=== PATIENT | female | born 1990 | race American Indian/Alaskan Native ===

== ENCOUNTER 2017-04-02 11:35 | Emergency (ER) | payer MEDICAID, OTHER ==
--- NOTE | 2017-04-02 13:43 | Emergency Department Report ---
Entered by LOLI DEE, acting as scribe for BLANCA BYRNE NP. Chief Complaint: Nosebleed Stated Complaint: NOSE BLEED/LIGHT HEADED/HEADACHE - HPI History of Present Illness: 26 y/o female, nontoxic, well developed, NAD, c/o nasal bleeding beginning this morning. Symptoms have resolved upon being seen in the ED. Associated sneezing but denies fever, chills, SOB, CP, CHRISTOPHER, NVD, blurry vision, dizziness. Patient has a Hx of nose bleeds and seasonal allergies. She reports taking Tylenol last night around 23:00. - Exam Vital Signs: Vital Signs 04/02/17 11:46 Temperature 98 F Pulse Rate 79 Respiratory 18 Rate Blood Pressure 117/81 O2 Sat by Pulse 100 Oximetry Physical Exam: GENERAL: The patient is a well-developed, well-nourished male in no apparent distress. Patient is alert and oriented x3. HEENT: Head is normocephalic and atraumatic. PERRL, Extraocular muscles are intact. Pupils are equal, round, and reactive to light and accommodation. Nares appeared normal, no abscess, no nasal tenderness. Mouth is well hydrated and without lesions. Mucous membranes are moist. Posterior pharynx clear of any exudate or lesions. MSE screening note: Focused history and physical exam performed. Due to findings the following was ordered: CBC ED Disposition for MSE Condition: Stable Referrals: PRIMARY CARE,MD [Primary Care Provider] - 3-5 Days This documentation as recorded by the scribe,LOLI DEE,accurately reflects the service I personally performed and the decisions made by ,BLANCA BYRNE, SHAE.
--- NOTE | 2017-04-02 14:47 | Emergency Department Report ---
ED ENT HPI - General Chief complaint: Nosebleed Stated complaint: NOSE BLEED/LIGHT HEADED/HEADACHE Time Seen by Provider: 04/02/17 14:31 Source: patient Mode of arrival: Ambulatory Limitations: No Limitations - History of Present Illness Initial comments: PT c/o nose bleed that lasted for 5 minutes today. PT denies recent uri but states that she has allergies. PT states that her last nose bleed was on . PT states the bleeding resolved on it's own. PT states she has hx of frequent nose bleeds and usually has a a few nose bleeds when her allergies are bothering her. PT states the bleeding has gotten less frequent as she has gotten older. also, pt has a hx of increased ear wax, pt states no relief with hydrogen peroxide flushes at home. MD complaint: epistaxis -: Sudden Severity: mild Consistency: now resolved Worsens with: other (sneezing ) Associated Symptoms: denies: fever, cough, pain with swallowing, sore throat, tinnitus, hearing loss, discharge from ear, rhinorrhea - Related Data Previous Rx's Medication Instructions Recorded Last Taken Type Fexofenadine HCl 180 mg PO DAILY #14 tablet 04/02/17 Unknown Rx Allergies Allergy/AdvReac Type Severity Reaction Status Date / Time Sulfa (Sulfonamide Allergy Hives Verified 01/09/15 11:36 Antibiotics) ED Dental HPI - General Chief complaint: Nosebleed Stated complaint: NOSE BLEED/LIGHT HEADED/HEADACHE Time Seen by Provider: 04/02/17 14:31 Source: patient Mode of arrival: Ambulatory Limitations: No Limitations - Related Data Previous Rx's Medication Instructions Recorded Last Taken Type Fexofenadine HCl 180 mg PO DAILY #14 tablet 04/02/17 Unknown Rx Allergies Allergy/AdvReac Type Severity Reaction Status Date / Time Sulfa (Sulfonamide Allergy Hives Verified 01/09/15 11:36 Antibiotics) ED Review of Systems ROS: Stated complaint: NOSE BLEED/LIGHT HEADED/HEADACHE Other details as noted in HPI Comment: All other systems reviewed and negative Constitutional: denies: chills, fever ENT: as per HPI Respiratory: no symptoms reported Genitourinary: denies: abnormal menses Neurological: headache (pt states she took tylenol for it. ) ED Past Medical Hx - Past Medical History Previous Medical History?: Yes Additional medical history: nosebleed with cold s/s - Surgical History Past Surgical History?: No Additional Surgical History: Left ear keloid removed - Social History Smoking Status: Never Smoker Substance Use Type: Alcohol - Medications Home Medications: Home Medications Medication Instructions Recorded Confirmed Last Taken Type Fexofenadine HCl 180 mg PO DAILY #14 tablet 04/02/17 Unknown Rx ED Physical Exam - General Limitations: No Limitations General appearance: alert, in no apparent distress - Head Head exam: Present: atraumatic, normocephalic, normal inspection - Eye Eye exam: Present: normal appearance, PERRL, EOMI. Absent: conjunctival injection - ENT ENT exam: Present: normal orophraynx, mucous membranes moist, normal external ear exam, other (nose wnl, no active bleeding, nares patent ) - Expanded ENT Exam Expanded TM/Canal exam: Cerumen Impaction: Right TM, Left TM Mouth exam: Present: normal external inspection. Absent: drooling, trismus Throat exam: Positive: normal inspection. Negative: tonsillar erythema, tonsillomegaly, tonsillar exudate - Neck Neck exam: Present: normal inspection, full ROM. Absent: tenderness, lymphadenopathy - Respiratory Respiratory exam: Present: normal lung sounds bilaterally. Absent: respiratory distress - Cardiovascular Cardiovascular Exam: Present: regular rate, normal rhythm, normal heart sounds - Extremities Exam Extremities exam: Present: normal inspection, full ROM - Back Exam Back exam: Present: normal inspection, full ROM. Absent: tenderness, CVA tenderness (R), CVA tenderness (L) - Neurological Exam Neurological exam: Present: alert, oriented X3, normal gait - Psychiatric Psychiatric exam: Present: normal affect, normal mood - Skin Skin exam: Present: warm, dry, intact ED Course Vital Signs 04/02/17 04/02/17 11:46 16:02 Temperature 98 F Pulse Rate 79 66 Respiratory 18 18 Rate Blood Pressure 117/81 Blood Pressure 119/83 [Right] O2 Sat by Pulse 100 100 Oximetry - Reevaluation(s) Reevaluation #1: 04/02/17 15:30 PT aware of lab results. PT verbalizes understanding of dx and plan of care. No questions at this time. - Ear Wax Removal Both Ears Ear Canal(s) Curettaged: plastic scoops Results: Re-examined: cerumen removed completel TM Visible: TM(s) intact, normal appe Ear Canal: atraumatic Patient Tolerated Procedure: well, no complications Complications: no problems - Pulse Oximetry Interpretation Digit-Finger Initial Pulse Oximetry Readin Actions Taken: none ED Medical Decision Making - Lab Data Result diagrams: 04/02/17 14:56 Laboratory Results - last 24 hr 04/02/17 14:56 WBC 5.2 RBC 4.27 Hgb 12.6 Hct 39.1 MCV 92 MCH 30 MCHC 32 RDW 14.9 Plt Count 238 Lymph % (Auto) 46.2 H Monroe % (Auto) 9.3 H Eos % (Auto) 0.6 Baso % (Auto) 0.6 Lymph # 2.4 Monroe # 0.5 Eos # 0.0 Baso # 0.0 Seg Neutrophils % 43.3 Seg Neutrophils # 2.3 - Differential Diagnosis thrombocytopenia, cerumen impaction, sinusitis Critical Care Time: No Critical care attestation.: If time is entered above; I have spent that time in minutes in the direct care of this critically ill patient, excluding procedure time. ED Disposition Clinical Impression: Bilateral impacted cerumen, Epistaxis not due to trauma Allergic rhinitis Qualifiers: Allergic rhinitis trigger: unspecified Allergic rhinitis seasonality: unspecified seasonality Qualified Code(s): J30.9 - Allergic rhinitis, unspecified Disposition: DISCHARGED TO HOME OR SELFCARE Is pt being admited?: No Does the pt Need Aspirin: No Condition: Stable Instructions: Epistaxis (ED), Cerumen Impaction (ED), Allergies (ED) Prescriptions: Fexofenadine HCl 180 mg PO DAILY #14 tablet Referrals: [facility] [Outside] - 3-5 Days PRIMARY MD ANUM [Primary Care Provider] - 3-5 Days PATT MUSA MD [Staff Physician] - 3-5 Days Forms: Work/School Release Form(ED) Time of Disposition: 15:38
[2017-04-02 15:13] LABS: Basophils % (Auto) 0.6 % (0.0-1.8); Eosinophils % (Auto) 0.6 % (0.0-4.3); Hematocrit 39.1 % (30.3-42.9); Hemoglobin 12.6 gm/dl (10.1-14.3); Mean Corpuscular HGB Conc 32 % (30-34); Mean Corpuscular Hemoglobin 30 pg (28-32); Mean Corpuscular Volume 92 fl (79-97); Platelet Count 238 K/mm3 (140-440); Red Blood Count 4.27 M/mm3 (3.65-5.03); Red Cell Distribution Width 14.9 % (13.2-15.2); White Blood Count 5.2 K/mm3 (4.5-11.0)
[2017-04-02 16:03] VITALS: BP 119/83
== END 2017-04-02 16:04 | disposition home or self-care (01) ==
LOC: ED 11:35
DX: R04.0 Epistaxis (principal); H61.23 Impacted cerumen, bilateral; J30.9 Allergic rhinitis, unspecified; Z88.2 Allergy status to sulfonamides
CPT/HCPCS: 36415; 85025

== ENCOUNTER 2018-05-01 19:35 | Emergency (ER) | payer MEDICAID ==
[2018-05-01] MEDS ORDERED: TYLENOL ONE (20:17)
[2018-05-01] MEDS ORDERED: TYLENOL PO ONE (20:20)
--- NOTE | 2018-05-01 21:07 | Emergency Department Report ---
ED Female HPI - General Chief complaint: Urogenital-Female Stated complaint: POSSIBLE UTI Time Seen by Provider: 05/01/18 20:35 Source: patient Mode of arrival: Ambulatory Limitations: No Limitations - History of Present Illness Initial comments: This is a 27-year-old female nontoxic, well nourished in appearance, no acute signs of distress presents to the ED with c/o of vaginal discharge, dysuria, frequency and urgency x1 week. She stated that she is not concerned about STD like to be tested. Patient denies any vaginal ulcers or lesions. Patient denies any abdominal pain, back pain or pelvic pain. Patient denies any vaginal bleeding. Patient denies any nausea, vomiting, chest pain, shortness of breathe, fever, chills, headache, back pain, numbness, tingling, stiff neck. Patient denies any other urinary symptoms. Patient states allergies to sulfa. MD Complaint: vaginal discharge, dysuria -: week(s) (1) Radiation: non-radiating Severity scale (0 -10): 3 Quality: burning Consistency: constant Improves with: none Worsens with: urination Are you Now?: No Associated Symptoms: vaginal discharge, dysuria. denies: vaginal bleeding, abdominal pain, nausea/vomiting, fever/chills, headaches, loss of appetite, hematuria, rash, seizure, shortness of breath, syncope, weakness - Related Data Previous Rx's Medication Instructions Recorded Last Taken Type Fexofenadine HCl 180 mg PO DAILY #14 tablet 04/02/17 Unknown Rx Nitrofurantoin Logan/M-Cryst 100 mg PO Q12HR #14 capsule 05/01/18 Unknown Rx [Macrobid CAP] metroNIDAZOLE [Flagyl] 500 mg PO Q12HR #14 tab 05/01/18 Unknown Rx Allergies Allergy/AdvReac Type Severity Reaction Status Date / Time Sulfa (Sulfonamide Allergy Hives Verified 05/01/18 20:21 Antibiotics) ED Review of Systems ROS: Stated complaint: POSSIBLE UTI Other details as noted in HPI Constitutional: denies: chills, fever Eyes: denies: eye pain, eye discharge, vision change ENT: denies: ear pain, throat pain Respiratory: denies: cough, shortness of breath, wheezing Cardiovascular: denies: chest pain, palpitations Endocrine: no symptoms reported Gastrointestinal: denies: abdominal pain, nausea, diarrhea Genitourinary: urgency, dysuria, frequency, discharge Musculoskeletal: denies: back pain, joint swelling, arthralgia Skin: denies: rash, lesions Neurological: denies: headache, weakness, paresthesias Psychiatric: denies: anxiety, depression Hematological/Lymphatic: denies: easy bleeding, easy bruising ED Past Medical Hx - Past Medical History Previous Medical History?: Yes Additional medical history: nosebleed with cold s/s - Surgical History Past Surgical History?: Yes Additional Surgical History: Left ear keloid removed - Social History Smoking Status: Never Smoker Substance Use Type: None - Medications Home Medications: Home Medications Medication Instructions Recorded Confirmed Last Taken Type Fexofenadine HCl 180 mg PO DAILY #14 tablet 04/02/17 Unknown Rx Nitrofurantoin Logan/M-Cryst 100 mg PO Q12HR #14 capsule 05/01/18 Unknown Rx [Macrobid CAP] metroNIDAZOLE [Flagyl] 500 mg PO Q12HR #14 tab 05/01/18 Unknown Rx ED Physical Exam - General Limitations: No Limitations General appearance: alert, in no apparent distress - Head Head exam: Present: atraumatic, normocephalic - Eye Eye exam: Present: normal appearance Pupils: Present: normal accommodation - ENT ENT exam: Present: normal exam, mucous membranes moist - Neck Neck exam: Present: normal inspection, full ROM. Absent: tenderness, meningismus, lymphadenopathy - Respiratory Respiratory exam: Present: normal lung sounds bilaterally. Absent: respiratory distress, wheezes, rales, rhonchi, stridor, chest wall tenderness, accessory muscle use, decreased breath sounds, prolonged expiratory - Cardiovascular Cardiovascular Exam: Present: regular rate, normal rhythm, normal heart sounds. Absent: irregular rhythm, systolic murmur, diastolic murmur, rubs, gallop - GI/Abdominal GI/Abdominal exam: Present: soft, normal bowel sounds. Absent: distended, tenderness, guarding, rebound, rigid, diminished bowel sounds - Rectal Rectal exam: Present: deferred - External exam: Present: normal external exam, other (mutuel teller Fernanda stopperer assembler present during exam). Absent: erythema, swelling, lesions, lacerations, ecchymosis, bleeding Speculum exam: Present: normal speculum exam, cervical discharge, other ( mutuel teller Fernanda stopperer assembler present during exam). Absent: erythema, vaginal discharge, vaginal bleeding, foreign body, tissue, laceration Bi-manual exam: Present: normal bi-manual exam, other (mutuel teller Fernanda stopperer assembler present during exam). Absent: cervical motion tendernes, adnexal tenderness, adnexal mass, uterine enlargement, uterine tenderness - Extremities Exam Extremities exam: Present: normal inspection, full ROM, normal capillary refill. Absent: tenderness - Back Exam Back exam: Present: normal inspection, full ROM. Absent: tenderness, CVA tenderness (R), CVA tenderness (L), muscle spasm, paraspinal tenderness, vertebral tenderness, rash noted - Neurological Exam Neurological exam: Present: alert, oriented X3, normal gait - Psychiatric Psychiatric exam: Present: normal affect, normal mood - Skin Skin exam: Present: warm, dry, intact, normal color. Absent: rash ED Course Vital Signs 05/01/18 20:10 Temperature 99 F Pulse Rate 101 H Respiratory 16 Rate Blood Pressure 115/74 O2 Sat by Pulse 99 Oximetry - Reevaluation(s) Reevaluation #1: 05/01/18 21:06 Patient is speaking in full sentences with no signs of distress noted. ED Medical Decision Making - Medical Decision Making This is a 28-year-old female that presents with UTI and test. Patient is stable was examined by me. There is no abdominal tenderness. No pelvic pain. No vaginal bleeding. UA obtained. Wet prep obtained with BV. Gonorrhea chlamydia swab pending. Patient was instructed to return in 2 days for GC results. Patient did not want empirical treatment for STD as she is not concerned. Patient is discharged Macrobid and Flagyl and was a sharp and not to consume any alcohol while taking antibiotics. Patient was instructed to Follow-up with a primary care doctor in 3-5 days or if symptoms worsen and continue return to emergency room as soon as possible. At time of discharge, the patient does not seem toxic or ill in appearance. No acute signs of distress noted. Patient agrees to discharge treatment plan of care. No further questions noted by the patient. Critical care attestation.: If time is entered above; I have spent that time in minutes in the direct care of this critically ill patient, excluding procedure time. ED Disposition Clinical Impression: Bacterial vaginosis UTI (urinary tract infection) Qualifiers: Urinary tract infection type: site unspecified Hematuria presence: without hematuria Qualified Code(s): N39.0 - Urinary tract infection, site not specified Qualifiers: Weeks of gestation: unspecified Qualified Code(s): Z34.90 - Encounter for supervision of normal , unspecified, unspecified trimester Disposition: DC-01 TO HOME OR SELFCARE Is pt being admited?: No Does the pt Need Aspirin: No Condition: Stable Instructions: Bacterial Vaginosis (ED), Metronidazole (By mouth), Urinary Tract Infection in Women (ED), Nitrofurantoin Combination (By mouth) Additional Instructions: Follow-up with a primary care/[facility] doctor in 3-5 days or if symptoms worsen and continue return to emergency room as soon as possible. Return in 3-5 days for gonorrhea and chlamydia results. Prescriptions: metroNIDAZOLE [Flagyl] 500 mg PO Q12HR #14 tab Nitrofurantoin Logan/M-Cryst [Macrobid CAP] 100 mg PO Q12HR #14 capsule Referrals: PRIMARY CAREMD [Primary Care Provider] - 3-5 Days KARI HUGHES MD [Staff Physician] - 3-5 Days JAVIER SANDS MD [Staff Physician] - 3-5 Days [facility] [Provider Group] - 3-5 Days [facility] [Outside] - 3-5 Days [facility] [Outside] - 3-5 Days Forms: Work/School Release Form(ED)
[2018-05-01 21:40] LABS: Bacteria,Urine 1+ /HPF (Negative); Bilirubin,Urine NEG (Negative); Blood,Urine NEG (Negative); Color,Urine Yellow (Yellow); Mucus,Urine FEW /HPF; Protein,Urine <15 mg/dL mg/dL (Negative); Urobilinogen,Urine < 2.0 mg/dL (<2.0)
[2018-05-01 21:45] LABS: HCG Qualitative,Urine Positive (Negative)
[2018-05-01 23:21] VITALS: BP 120/77
== END 2018-05-01 23:21 | disposition home or self-care (01) ==
LOC: ED 19:35
DX: O23.40 Unspecified infection of urinary tract in pregnancy, unspecified trimester (principal); N76.0 Acute vaginitis; N39.0 Urinary tract infection, site not specified; O23.599 Infection of other part of genital tract in pregnancy, unspecified trimester; Z3A.00 Weeks of gestation of pregnancy not specified
CPT/HCPCS: 81001; 81025; 87086; 87210; 87591